=== PATIENT | female | born 1965 | race Caucasian/White ===

== ENCOUNTER 2024-11-19 18:41 | Observation (INO) | payer BC ==
[~2024-11-19] VITALS: Ht 167.6 cm; Wt 97.9 kg
[2024-11-19 19:15] VITALS: BP 146/65; O2SAT 99
[2024-11-19] MEDS ORDERED: ISOVUE-370 76% 100 ML VIAL As Ordered ONE (19:28)
[2024-11-19 19:31] LABS: BASO # 0.0 10^3/uL (0.0-0.2); BASO % 0.5 % (0.0-1.0); EOS # 0.2 10^3/uL (0.0-0.5); EOS % 2.8 % (0.0-3.0); LYMPH # 2.3 10^3/uL (1.5-5.0); LYMPH % 39.2 % (24.0-44.0); MONO # 0.4 10^3/uL (0.0-0.8); MONO % 6.4 % (2.0-8.0); NEUTROPHILS # 3.0 10^3/uL (1.5-8.5); NEUTROPHILS % 50.9 % (36.0-66.0); PLATELET COUNT, AUTOMATED 231 10^3/uL (150-450)
[2024-11-19 19:48] LABS: INR 0.9
[2024-11-20] MEDS ORDERED: ASPIRIN 81 MG CHEWABLE TABLET PO ONE (01:00)
[2024-11-20 01:33] LABS: CPK CREATINE PHOSPHOKINASE 80 U/L (34-145)
[2024-11-20 01:34] LABS: ALT/SGPT 20 U/L (7.0-40); AST/SGOT 21 U/L (<34); CALCIUM LEVEL 8.9 MG/DL (8.3-10.6); CARBON DIOXIDE LEVEL 30 MMOL/L (20-31); CHLORIDE LEVEL 103 MMOL/L (98-107); CREATININE FOR GFR 0.93 MG/DL (0.55-1.30); GLOMERULAR FILTRATION RATE 69.9 (>45); POTASSIUM SERUM 4.1 MMOL/L (3.5-5.1); SODIUM LEVEL 139 MMOL/L (136-145)
[2024-11-20 01:35] LABS: T UPTAKE 24.5 % (22.5-37.0); THYROXINE (T4) 2.8 UG/DL (4.5-10.9)
[2024-11-20] MEDS: CLOPIDOGREL 75 MG TAB PO ONE (01:55)
[2024-11-20] MEDS ORDERED: METH-1386 PO ×2 (02:09→14:24)
[2024-11-20] MEDS ORDERED: OMEP40CA5 PO (02:09)
[2024-11-20] MEDS ORDERED: ALLE24TA7 PO (02:10)
[2024-11-20 07:18] LABS: BASO # 0.0 10^3/uL (0.0-0.2); BASO % 0.6 % (0.0-1.0); EOS # 0.2 10^3/uL (0.0-0.5); EOS % 2.5 % (0.0-3.0); LYMPH # 3.0 10^3/uL (1.5-5.0); LYMPH % 47.8 % (24.0-44.0); MONO # 0.4 10^3/uL (0.0-0.8); MONO % 5.5 % (2.0-8.0); NEUTROPHILS # 2.7 10^3/uL (1.5-8.5); NEUTROPHILS % 43.3 % (36.0-66.0); PLATELET COUNT, AUTOMATED 217 10^3/uL (150-450)
[2024-11-20 07:23] LABS: KETONE, URINE AUTO RFX NEGATIVE (NEGATIVE); MUCUS, URINE RFX SMALL (NEGATIVE); NITRITE, URINE AUTO RFX NEGATIVE (NEGATIVE); RBC, URINE AUTO RFX 1 /HPF (0-3); SQUAM EPITHELIAL CELL UR AURFX 1 /HPF (0-6); WBC, URINE AUTO RFX 1 /HPF (0-3)
[2024-11-20 07:46] LABS: CPK CREATINE PHOSPHOKINASE 85 U/L (34-145)
[2024-11-20 07:47] LABS: ALT/SGPT 17 U/L (7.0-40); AST/SGOT 19 U/L (<34); CALCIUM LEVEL 8.7 MG/DL (8.3-10.6); CARBON DIOXIDE LEVEL 29 MMOL/L (20-31); CHLORIDE LEVEL 106 MMOL/L (98-107); CHOLESTEROL LEVEL 223 MG/DL (<200); CHOLESTEROL RISK RATIO 2.85 (<5); CK-MB VALUE MASS < 1.0 NG/ML (<3.6); CREATININE FOR GFR 0.85 MG/DL (0.55-1.30); GLOMERULAR FILTRATION RATE 77.9 (>45); LDL CHOLESTEROL 130.6 MG/DL (<100); NON-HDL-C 145.0 MG/DL; POTASSIUM SERUM 4.3 MMOL/L (3.5-5.1); SODIUM LEVEL 141 MMOL/L (136-145); TRIGLYCERIDES LEVEL 72 MG/DL (<150)
[2024-11-20 07:48] LABS: ERYTHROCYTE SEDIMENTATION RATE 15 mm/hr (0-30)
[2024-11-20] MEDS ORDERED: FEXO-63 PO (07:50)
[2024-11-20] MEDS ORDERED: HOME MED LIST COMPLETE! XX SCH (07:55)
[2024-11-20 07:59] LABS: ESTIMATED AVERAGE GLUCOSE 108.0 MG/DL (60-110)
[2024-11-20 08:10] LABS: LEUKOCYTE ESTERASE UR AUTO RFX TRACE (NEGATIVE)
[2024-11-20] MEDS: OMEPRAZOLE 20MG CAP PO SCH (11:40)
[2024-11-20 15:28] VITALS: BP 101/66; TEMP 96.9; O2SAT 96
[2024-11-20] MEDS ORDERED: ATORVASTATIN 20 MG TAB PO SCH (21:00)
== END 2024-11-20 15:51 | disposition home or self-care (01) ==
LOC: M ED 18:41 → M ED INP 18:42
PROVIDERS: ADMIT Student in an Organized Health Care Education/Training Program; ATTEND Student in an Organized Health Care Education/Training Program
DX: R29.818 Other symptoms and signs involving the nervous system (principal); E03.2 Hypothyroidism due to medicaments and other exogenous substances; I35.1 Nonrheumatic aortic (valve) insufficiency; Z79.899 Other long term (current) drug therapy; Z88.0 Allergy status to penicillin; Z88.1 Allergy status to other antibiotic agents; Z88.5 Allergy status to narcotic agent; Q21.10 Atrial septal defect, unspecified